=== PATIENT | female | born 1945 | race Caucasian/White ===

== ENCOUNTER 2017-09-12 16:27 | Emergency (ER) | payer OTHER ==
[~2017-09-12] VITALS: Ht 162.6 cm; Wt 88.9 kg
[2017-09-12 16:42] VITALS: Ht 162.6 cm; Wt 88.9 kg
[2017-09-12 17:32] LABS: BASOPHIL % 0 % (0-2); PLATELET COUNT 246 x10^3mcL (130-400); RED CELL DISTRIBUTION WIDTH 13.4 % (11.5-14.5)
[2017-09-12 17:34] LABS: CALCIUM 8.8 mg/dL (8.5-10.1); CARBON DIOXIDE 24.8 mmol/L (21-32); CHLORIDE SERUM 104 mmol/L (98-107); CREATININE SERUM 0.8 mg/dL (0.6-1.0); GLUCOSE SERUM 117 mg/dL (74-106); POTASSIUM SERUM 3.9 mmol/L (3.5-5.1); SODIUM SERUM 140 mmol/L (136-145)
[2017-09-12 17:39] LABS: ALBUMIN 3.9 g/dL (3.4-5.0); ALKALINE PHOSPHATASE 124 U/L (46-116); ALT/SGPT 55 U/L (14-59); AST/SGOT 38 U/L (15-37); BILIRUBIN TOTAL 1.6 mg/dL (0.20-1.00); LIPASE 96 IU/L (73-393); TOTAL PROTEIN, SERUM 7.3 g/dL (6.4-8.2)
[2017-09-12 17:40] LABS: AMYLASE 23 U/L (25-115)
[2017-09-12 19:48] VITALS: BP 124/63
== END 2017-09-12 19:48 | disposition home or self-care (01) ==
LOC: ED 16:27
PROVIDERS: Emergency Medicine
DX: K52.9 Noninfective gastroenteritis and colitis, unspecified (principal); I10 Essential (primary) hypertension
CPT/HCPCS: 83880; J1885; J2405

== ENCOUNTER 2018-04-09 11:28 | Inpatient (IN) | payer OTHER, MEDICARE ==
[~2018-04-09] VITALS: Ht 162.6 cm; Wt 92.2 kg
[2018-04-09 11:34] VITALS: Ht 162.6 cm; Wt 92.2 kg
[2018-04-09 12:27] LABS: PLATELET COUNT 196 x10^3mcL (130-400); RED CELL DISTRIBUTION WIDTH 14.1 % (11.5-14.5)
[2018-04-09 12:48] LABS: CALCIUM 9.1 mg/dL (8.5-10.1); CARBON DIOXIDE 24.5 mmol/L (21-32); CHLORIDE SERUM 107 mmol/L (98-107); CREATININE SERUM 0.6 mg/dL (0.6-1.0); GLUCOSE SERUM 103 mg/dL (74-106); POTASSIUM SERUM 4.5 mmol/L (3.5-5.1); SODIUM SERUM 142 mmol/L (136-145)
[2018-04-09 13:01] LABS: ALBUMIN 3.6 g/dL (3.4-5.0); ALKALINE PHOSPHATASE 113 U/L (46-116); ALT/SGPT 94 U/L (14-59); AST/SGOT 66 U/L (15-37); FREE T4 1.01 ng/dL (0.76-1.46); LIPASE 127 IU/L (73-393); TOTAL PROTEIN, SERUM 7.3 g/dL (6.4-8.2)
[2018-04-09 13:22] LABS: UA SPECIFIC GRAVITY 1.025 (1.005-1.035); microscopic required? YES; urine erythrocyte NEGATIVE (NEGATIVE)
[2018-04-09 13:27] LABS: BAND NEUTROPHIL 2 % (0-10); MONOCYTE 6 % (0-7); SEGMENTED NEUTROPHILS 68 % (37-75); rbc morphology (normal/abnorm) NORMAL (NORMAL)
[2018-04-09] MEDS ORDERED: LOSARTAN POTASS50 M1 PO (13:51)
[2018-04-09] MEDS ORDERED: GOOD SENSE OMEP20 MG PO (13:52)
[2018-04-09] MEDS ORDERED: PRA40 PO (13:52)
[2018-04-09] MEDS ORDERED: FENOFIBRATE MI134 MG PO (13:52)
[2018-04-09] MEDS ORDERED: LEVOTHYROXIN0.025 M2 PO (13:53)
[2018-04-09] MEDS ORDERED: DICLOFENAC SODI75 MG PO (13:53)
[2018-04-09] MEDS ORDERED: NEURONTIN100 MG PO (13:54)
[2018-04-09 14:41] VITALS: BP 126/67
[2018-04-09 16:24] LABS: PHOSPHOROUS 3.1 mg/dL (2.5-4.9)
[2018-04-09 17:05] LABS: FREE T4 1.01 ng/dL (0.76-1.46); FREE THYROXINE INDEX 2.4 ug/dL (1.4-4.5); T4(THYROXINE) 8.4 ug/dL (4.7-13.3)
[2018-04-09 17:06] LABS: T3 TOTAL 1.2 ng/mL
[2018-04-09 17:15] VITALS: BP 126/67
[2018-04-09 18:33] VITALS: BP 127/68
[2018-04-09 20:47] VITALS: BP 129/63
[2018-04-10 05:05] VITALS: BP 113/71
[2018-04-10 06:57] LABS: BASOPHIL % 0.3 % (0-2); PLATELET COUNT 200 x10^3mcL (130-400); RED CELL DISTRIBUTION WIDTH 14.1 % (11.5-14.5)
[2018-04-10 09:42] LABS: CALCIUM 8.6 mg/dL (8.5-10.1); CARBON DIOXIDE 27.4 mmol/L (21-32); CHLORIDE SERUM 103 mmol/L (98-107); CREATININE SERUM 0.6 mg/dL (0.6-1.0); GLUCOSE SERUM 107 mg/dL (74-106); SODIUM SERUM 140 mmol/L (136-145)
[2018-04-10 10:07] VITALS: BP 134/79
[2018-04-10 11:10] LABS: BILIRUBIN DIRECT 0.14 mg/dL (0.0-0.2); BILIRUBIN TOTAL 0.8 mg/dL (0.20-1.00); TOTAL PROTEIN, SERUM 6.7 g/dL (6.4-8.2)
[2018-04-10 11:11] LABS: ALBUMIN 3.3 g/dL (3.4-5.0)
[2018-04-10 12:43] VITALS: BP 156/85
[2018-04-10 16:40] VITALS: BP 143/83
[2018-04-10 20:45] VITALS: BP 140/74
[2018-04-11 04:49] VITALS: BP 142/75
[2018-04-11 06:03] LABS: BASOPHIL % 0.4 % (0-2); PLATELET COUNT 215 x10^3mcL (130-400); RED CELL DISTRIBUTION WIDTH 13.7 % (11.5-14.5)
[2018-04-11 06:16] LABS: CALCIUM 9.2 mg/dL (8.5-10.1); CARBON DIOXIDE 24.4 mmol/L (21-32); CHLORIDE SERUM 104 mmol/L (98-107); CREATININE SERUM 0.7 mg/dL (0.6-1.0); GLUCOSE SERUM 111 mg/dL (74-106); POTASSIUM SERUM 4.5 mmol/L (3.5-5.1); SODIUM SERUM 140 mmol/L (136-145)
[2018-04-11 08:30] VITALS: BP 136/70
[2018-04-11] MEDS ORDERED: AUGMENTIN 875-1 EACH PO (09:22)
[2018-04-11 12:15] VITALS: BP 151/73
[2018-04-11 13:00] VITALS: BP 151/73
[2018-04-11] MEDS ORDERED: MAC100 PO (13:04)
== END 2018-04-11 14:56 | disposition home or self-care (01) | DRG 720 ==
LOC: ED 11:28 → DU 13:32
PROVIDERS: Emergency Medicine; Internal Medicine
DX: A41.9 Sepsis, unspecified organism (principal); J69.0 Pneumonitis due to inhalation of food and vomit; J96.01 Acute respiratory failure with hypoxia; K74.60 Unspecified cirrhosis of liver; N39.0 Urinary tract infection, site not specified; E03.9 Hypothyroidism, unspecified; G89.29 Other chronic pain; M54.9 Dorsalgia, unspecified; I10 Essential (primary) hypertension; M19.90 Unspecified osteoarthritis, unspecified site; Z60.2 Problems related to living alone; R74.0 Nonspecific elevation of levels of transaminase and lactic acid dehydrogenase [LDH]; E66.9 Obesity, unspecified; Z98.51 Tubal ligation status; Z83.3 Family history of diabetes mellitus
CPT/HCPCS: 83880; 84439; 92610-GN; J0696; J1644; J7030; J7620; Q0092

== ENCOUNTER 2019-08-07 14:26 | Emergency (ER) | payer MEDICARE, OTHER ==
[~2019-08-07] VITALS: Ht 160 cm; Wt 89.8 kg
[~2019-08-07 14:26] MED LIST: AUGMENTIN 875-1 EACH PO; DICLOFENAC SODI75 MG PO; FENOFIBRATE MI134 MG PO; GOOD SENSE OMEP20 MG PO; LEVOTHYROXIN0.025 M2 PO; LOSARTAN POTASS50 M1 PO; MAC100 PO; NEURONTIN100 MG PO; PRA40 PO
[2019-08-07 14:57] VITALS: BP 127/74; Ht 160 cm; Wt 89.8 kg
== END 2019-08-07 15:47 | disposition home or self-care (01) ==
LOC: ED 14:26
DX: H10.89 Other conjunctivitis (principal); I10 Essential (primary) hypertension; E78.00 Pure hypercholesterolemia, unspecified; M19.90 Unspecified osteoarthritis, unspecified site; Z98.890 Other specified postprocedural states

== ENCOUNTER 2019-08-07 19:08 | Emergency (ER) | payer MEDICARE, OTHER ==
[~2019-08-07] VITALS: Ht 160 cm; Wt 87.5 kg
[2019-08-07 19:37] VITALS: Ht 160 cm; Wt 87.5 kg
[2019-08-07 21:43] VITALS: BP 132/87
== END 2019-08-07 21:43 | disposition home or self-care (01) ==
LOC: ED 19:08
DX: T78.40XA Allergy, unspecified, initial encounter (principal); H10.33 Unspecified acute conjunctivitis, bilateral; I10 Essential (primary) hypertension; E03.9 Hypothyroidism, unspecified; E78.00 Pure hypercholesterolemia, unspecified; M19.90 Unspecified osteoarthritis, unspecified site; Z98.51 Tubal ligation status; X58.XXXA Exposure to other specified factors, initial encounter

== ENCOUNTER 2020-05-13 12:31 | Emergency (ER) | payer MEDICARE, OTHER ==
[~2020-05-13] VITALS: Ht 160 cm; Wt 94.8 kg
[2020-05-13 12:42] VITALS: Ht 160 cm; Wt 94.8 kg
[2020-05-13 14:05] VITALS: BP 135/71
== END 2020-05-13 14:38 | disposition home or self-care (01) ==
LOC: ED 12:31
DX: M17.0 Bilateral primary osteoarthritis of knee (principal); I10 Essential (primary) hypertension; E03.9 Hypothyroidism, unspecified; E78.00 Pure hypercholesterolemia, unspecified; M19.90 Unspecified osteoarthritis, unspecified site; Z98.890 Other specified postprocedural states
CPT/HCPCS: Q0092

== ENCOUNTER 2020-10-10 12:25 | Emergency (ER) | payer MEDICARE, OTHER ==
[~2020-10-10] VITALS: Ht 160 cm; Wt 88.0 kg
[2020-10-10 12:40] VITALS: Ht 160 cm; Wt 88.0 kg
[2020-10-10 15:41] LABS: BASOPHIL % 0.8 % (0.2-1.3); PLATELET COUNT 222 x10^3mcL (179-408); RED CELL DISTRIBUTION WIDTH 13.3 % (12.3-17.7)
[2020-10-10 16:00] LABS: CALCIUM 9.1 mg/dL (8.5-10.1); CARBON DIOXIDE 27.8 mmol/L (21-32); CHLORIDE SERUM 100 mmol/L (98-107); CREATININE SERUM 0.6 mg/dL (0.6-1.0); GLUCOSE SERUM 98 mg/dL (74-106); POTASSIUM SERUM 4.1 mmol/L (3.5-5.1); SODIUM SERUM 135 mmol/L (136-145)
[2020-10-10 16:05] LABS: ALBUMIN 3.5 g/dL (3.4-5.0); ALKALINE PHOSPHATASE 136 U/L (46-116); ALT/SGPT 70 U/L (14-59); AST/SGOT 53 U/L (15-37); BILIRUBIN TOTAL 1.2 mg/dL (0.20-1.00); TOTAL PROTEIN, SERUM 6.8 g/dL (6.4-8.2)
[2020-10-10] MEDS ORDERED: ULTRAM50 MG PO (16:21)
[2020-10-10 16:45] VITALS: BP 116/81
== END 2020-10-10 16:45 | disposition home or self-care (01) ==
LOC: ED 12:25
PROVIDERS: Emergency Medicine
DX: R07.89 Other chest pain (principal); I10 Essential (primary) hypertension; E78.00 Pure hypercholesterolemia, unspecified; E03.9 Hypothyroidism, unspecified; M19.90 Unspecified osteoarthritis, unspecified site; Z98.890 Other specified postprocedural states